=== PATIENT | male | born 1970 | race Caucasian/White ===

== ENCOUNTER 2018-12-06 14:59 | Emergency (ER) | payer OTHER ==
--- OUTSIDE RECORDS SUMMARY | 2018-12-06 15:02 | XMS REPORT | Clinical Summary ---
:1970 Author Organization [facility] Address [address] [place] [address] Care Team Providers Name Role Phone Cameron Barnes MD Primary Care Provider Allergies Active Allergy Reactions Severity Noted Date Comments Hydrocodone GI Intolerance Medium 07/10/2018 Hydromorphone High 11/26/2018 Makes head fell like balloon Medications Medication Sig Dispensed Refills Start Date End Date Status metFORMIN (GLUCOPHAGE) Take 500 mg by 0 Active 500 mg tablet mouth 2 (two) times a day with meals. carisoprodol (SOMA) Take 350 mg by 0 Active 350 MG tablet mouth 4 (four) times a day as needed for muscle spasms. traMADol (ULTRAM) 50 Take 50 mg by 0 Active mg tablet mouth every 6 (six) hours as needed for moderate pain. Lactobac Take by mouth. 0 Active no.41/Bifidobact no.7 (PROBIOTIC-10 ORAL) Active Problems Problem Noted Date Cervical radiculopathy 12/03/2018 Cervical radiculopathy at C7 10/03/2018 Cervical radiculopathy at C6 10/03/2018 vinyl dipper 10/03/2018 Carpal tunnel syndrome, right 07/11/2018 Numbness and tingling in right hand 07/11/2018 Fixation hardware in spine 07/11/2018 Encounters Date Type Specialty Care Team Description 12/06/2018 Telephone Neurosurgery Mily Pozo LVN 12/03/2018 Surgery General Surgery Adam Sheldon MD DISCECTOMY AND FUSION, C5-7, RIGHT ILIAC CREST BONE MARROW ASPIRATION 12/03/2018 Anesthesia Event General Surgery Ena Cueva NP 12/03/2018 - Hospital Encounter General Internal Adam Sheldon Cervical 12/04/2018 Medicine MD Bernie radiculopathy 11/26/2018 Pre-Admit Testing Pre-Admission Adam Sheldon Preoperative testing Appointment Testing MD Bernie (Primary Dx) 10/24/2018 Hospital Encounter Adam An MD 10/24/2018 Office Visit Neurosurgery Adam Sheldon Cervical radiculopathy at C7 (Primary Dx); MD Bernie Cervical radiculopathy at C6; Numbness and tingling in right hand; Carpal tunnel syndrome, right 10/24/2018 Hospital Encounter Adam An MD radiculopathy 10/24/2018 Hospital Encounter Adam An MD radiculopathy 10/03/2018 Office Visit Neurosurgery Adam Sheldon Cervical radiculopathy at C7 (Primary Dx); MD Bernie Numbness and tingling in right hand; Carpal tunnel syndrome, right; Fixation hardware in spine; Cervical radiculopathy at C6; vinyl dipper 10/03/2018 Orders Only Adam Reeves MD radiculopathy (Primary Dx) 07/15/2018 Orders Only Adam Reeves Chronic left-sided headaches (Primary Dx); MD Bernie Carpal tunnel syndrome of right wrist 07/11/2018 Hospital Encounter Adam An MD 07/11/2018 Office Visit Neurosurgery Adam Sheldon Numbness and tingling in right hand (Primary Dx); MD Bernie Carpal tunnel syndrome, right; Fixation hardware in spine 07/11/2018 Hospital Encounter Adam An MD radiculopathy 07/11/2018 Hospital Encounter Adam An MD radiculopathy 07/10/2018 Abstract Neurosurgery Mily Pozo LVN 06/18/2018 Orders Only Adam Reeves MD radiculopathy (Primary Dx) after 12/05/2017 Family History Medical History Relation Name Comments Cancer Father Heart disease Father Cancer Mother Hypertension Mother Thyroid disease Mother Relation Name Status Comments Father Mother Social History Tobacco Use Types Packs/Day Years Used Date Former Smoker 5 Quit: 1992 Smokeless Tobacco: Former User Snuff Quit: 10/14/2018 Alcohol Use Drinks/Week oz/Week Comments No once a month socially Alcohol Habits Answer Date Recorded How often do you have a drink containing alcohol? Never 11/26/2018 How many drinks containing alcohol do you have on a typical Not asked day when you are drinking? How often do you have six or more drinks on one occasion? Not asked Sex Assigned at Date Recorded Male 11/27/2018 2:55 PM CDT Job Start Date Occupation Industry Not on file Not on file Not on file Travel History Travel Start Travel End No recent travel history available. Last Filed Vital Signs Vital Sign Reading Time Taken Blood Pressure 136/83 12/04/2018 8:47 AM CDT Pulse 75 12/04/2018 7:29 AM CDT Temperature 36.9 C (98.5 F) 12/04/2018 7:29 AM CDT Respiratory Rate 18 12/04/2018 7:29 AM CDT Oxygen Saturation 95% 12/04/2018 7:29 AM CDT Inhaled Oxygen Concentration - - Weight 109 kg (239 lb 3.2 oz) 12/03/2018 5:29 AM CDT Height 185.4 cm (6' 1") 12/03/2018 5:29 AM CDT Body Mass Index 31.56 12/03/2018 5:29 AM CDT Plan of Treatment Health Maintenance Due Date Last Done Comments COLON CANCER SCREENING 2018 SHINGLES VACCINES (#1) 2018 INFLUENZA VACCINE 04/10/2018 Implants Implanted Type Area Piping Designer Device Shelf Model / Identifier Expiration Serial / Date Lot Rafita Eller Sterile Strips (1) - [id number] - [id number] IMPLANT N/A: NUVASIVE SPINE 05/20/2021 [id number] / Implanted: Qty: 1 on 12/03/2018 by Adam Sheldon MD DEVICES N/A FG- 1609 / [id number] Archon Plate, 40mm 2-Level - [id number] IMPLANT N/A: NUVASIVE SPINE [id number] / Implanted: 12/03/2018 (Quantity not on file) DEVICES N/A / Archon Screw, 4.0x11mm Sd Thais - [id number] IMPLANT N/A: NUVASIVE SPINE [id number] / Implanted: 12/03/2018 (Quantity not on file) DEVICES N/A / Spacer Spinal Cntord Med 5mm - [id number] Spinal N/A: NUVASIVE [id number] / Implanted: 12/03/2018 (Quantity not on file) Implants N/A / Spacer Spinal Cntord Sm [id number] - [id number] Spinal N/A: NUVASIVE [id number] / Implanted: 12/03/2018 (Quantity not on file) Implants N/A / Screw Distrctn 14mm Strl - [id number] Surgical N/A: ARMAMENTARIUM [id number] / Implanted: 12/03/2018 (Quantity not on file) Implants; N/A INC / Expanders; Extenders; Surgical Wires Procedures Procedure Name Priority Date/Time Associated Comments Diagnosis POC GLUCOSE Routine 12/03/2018 10:20 Results for this AM CDT procedure are in the results section. XR CERVICAL SPINE 1 Routine 12/03/2018 9:54 Results for this VW AM CDT procedure are in the results section. [place] AN ELECTIVE Routine 12/03/2018 8:33 ENDOTRACHEAL AIRWAY AM CDT Procedure Note - Patrick Slade MD - 12/03/2018 8:33 AM CDT Airway Date/Time: 12/03/2018 7:34 AM Performed by: Patrick Slade MD Authorized by: Patrick Slade MD Location: OR Urgency: Elective Difficult Airway: No Anesthesiologist: Patrick Slade MD Preoxygenated with 100% O2: Yes C-spine Precautions Maintained Throughout: Yes Mask Ventilation: Easy mask Final Airway Type: Endotracheal airway Final Endotracheal Airway: ETT Cuffed: Yes Technique Used: Video laryngoscopy Devices/Methods Used in Placement: Intubating stylet Insertion Site: Oral Laryngoscope Blade/Videolaryngoscope Blade Size: 4 ETT Size (mm): 8.0 Cuff at minimum occlusion pressure: Yes Measured from: Lips ETT to Lips (cm): 24 Placement Verified by: CO2 detection and equal breath sounds Laryngoscopic view: Grade I - full view of glottis Rapid Sequence Induction (RSI): No Modified RSI: No Number of Attempts at Approach: 1 Elective glidescope use 2/2 limited cervical range of motion and RUE radiculopathy ARTERIAL LINE Routine 12/03/2018 8:31 AM CDT Procedure Note - Patrick Slade MD - 12/03/2018 8:31 AM CDT Arterial line Performed by: Patrick Slade MD Authorized by: Patrick Slade MD Patient Location: Pre-op Start Time: 12/03/2018 7:36 AM End Time: 12/03/2018 7:39 AM Staff: Anesthesiologist: Patrick Slade MD Pre-procedure: patient identified, IV checked, site and side verified, risks and benefits discussed, procedure verified, surgical consent complete, patient position confirmed, monitors and equipment checked and pre-op evaluation complete MSBT: antiseptic used and hand hygiene performed TIme Out Performed: 12/03/2018 7:29 AM Indications: Indications: hemodynamic monitoring Anesthesia: Anesthesia: General Procedure Details: Arterial Line placement: Placed post induction Line placement site: Radial Line placement side: Right Arterial line gauge: 20 G Number of attempts: 1 Post-procedure: Post-procedure: Line sutured and sterile dressing applied Post procedure circulation, sensation, movement: Normal Patient tolerance: Patient tolerated the procedure well with no immediate complications XR CERVICAL SPINE Routine 12/03/2018 8:30 AM Results for this 1 VW CDT procedure are in the results section. XR CERVICAL SPINE Routine 12/03/2018 8:15 AM Results for this 1 VW CDT procedure are in the results section. DISCECTOMY, 12/03/2018 7:30 AM Cervical radiculopathy CERVICAL, WITH CDT FUSION, ANTERIOR APPROACH Case Notes POSSIBLE EXTENDED STAY, CARITO PUCKETT ORDER OF CASES 12/02/18 @ 1005 MED Special Needs EST 2HRS, POSSIBLE EXTENDED STAY, SUPINE POSITION, NUVASIVE INSTRUMENTATION, MICROSCOPE POC GLUCOSE Routine 12/03/2018 6:15 Results for this AM CDT procedure are in the results section. HEMOGLOBIN A1C Routine 11/26/2018 4:05 Preoperative testing Results for this PM CDT procedure are in the results section. ESTIMATED GFR Routine 11/26/2018 3:56 Results for this PM CDT procedure are in the results section. COMPREHENSIVE Routine 11/26/2018 3:56 Preoperative testing Results for this METABOLIC PANEL PM CDT procedure are in the results section. CBC HEMOGRAM Routine 11/26/2018 3:56 Preoperative testing Results for this PM CDT procedure are in the results section. CT POST MYELOGRAM Routine 10/24/2018 12:24 Cervical Results for this CERVICAL PM CATTLE DEALER radiculopathy procedure are in the results section. IR MYELOGRAM CERV Routine 10/24/2018 11:10 Cervical Results for this INCL INJ W S&I AM [employer]ATTLE DEALER radiculopathy procedure are in the results section. POC GLUCOSE Routine 10/24/2018 9:19 Results for this AM [employer] DEALER procedure are in the results section. MRI HEAD EXTERNAL Routine 08/06/2018 9:04 Results for this STUDY AM [employer]ATTLE DEALER procedure are in the results section. XR CERVICAL SPINE Routine 07/11/2018 2:33 Cervical Results for this COMPLETE W FLEX EXT PM CDT radiculopathy procedure are in the results section. XR SPINE SCOLIOSIS Routine 07/11/2018 2:33 Cervical Results for this 2-3 VIEWS PM CDT radiculopathy procedure are in the results section. MRI SPINE EXTERNAL Routine 06/11/2018 2:01 Results for this STUDY PM CDT procedure are in the results section. after 12/05/2017 Results POC glucose (12/03/2018 10:20 AM CDT)Only the most recent of3 resultswithin the time period is included. POC glucose 130 (H) 65 - 99 mg/dL [facility] Comment: No Action Needed [facility] Notified RN Meter ID: [id number] Private Household Worker: Aileen Saba Performing Organization Address City/[facility] Phone Number [facility] DEPARTMENT OF PATHOLOGY AND [address] [place] [address] GENOMIC MEDICINE [address] [address] XR Cervical Spine 1 Vw (12/03/2018 9:54 AM CDT)Only the most recent of3 resultswithin the time period is included. Narrative Performed At EXAMINATION: XR CERVICAL SPINE 1 VW [facility] CLINICAL HISTORY: Intraoperative COMPARISON:None IMPRESSION: Single lateral intraoperative radiograph of the cervical spine was obtained.C7 and below are obscured by patients shoulders. Postsurgical changes of C5-C7 ACDF. Oral route tube. Postsurgical prevertebral soft tissue swelling. [id number] Procedure Note Interface, Radiology Results Incoming - 12/03/2018 9:59 AM CDT EXAMINATION: XR CERVICAL SPINE 1 VW CLINICAL HISTORY: Intraoperative COMPARISON: None IMPRESSION: Single lateral intraoperative radiograph of the cervical spine was obtained. C7 and below are obscured by patients shoulders. Postsurgical changes of C5-C7 ACDF. Oral route tube. Postsurgical prevertebral soft tissue swelling. [id number] Performing Organization Address [facility]/Zipcode Phone Number [facility] [address] [place] [address] Hemoglobin A1c (11/26/2018 4:05 PM CDT) Hemoglobin A1C 6.6 (H) 4.0 - 5.6 % [facility] Comment: HbA1c cutoffs for diagnosing diabetes: 4.0% - 5.6%=normal 5.7% - 6.4%=increased risk for diabetes (prediabetes) >=6.5%=diabetes Goals for glycemic control (ADA 2016) < 7.0%Target for non adults with diabetes. More or less stringent targets may be appropriate for individual patients. <7.5% Target for Children and adolescents with type 1 diabetes. Specimen Blood Performing Organization Address [facility] Phone Number [facility] DEPARTMENT OF PATHOLOGY AND [address] [place] [phone] Estimated GFR (11/26/2018 3:56 PM CDT) Estimated GFR >=90 mL/min/1.73 m2 [facility] Comment: HOSPITAL CatergoryUnitsInterpretation G1 >=90 Normal or high G2 60-89Mildly decreased P5x56-45Qhrlya to moderately decreased C0b95-62Eqonemdybj to severely decreased G4 15-29Severely decreased G5 <15Kidney failure The eGFR was calculated using the Chronic Kidney Disease Epidemiology Collaboration (CKD-EPI) equation. Interpretation is based on recommendations of the National Kidney Foundation-Kidney Disease Outcomes Quality Initiative (NKF-KDOQI) published in 2014. Specimen Plasma specimen Performing Organization Address City/[facility]/Zipcode Phone Number [facility] DEPARTMENT OF PATHOLOGY AND [address] [place] [id number] [place] [phone] CBC hemogram (11/26/2018 3:56 PM CDT) WBC 7.93 4.50 - 11.00 k/uL [facility] RBC 5.08 4.40 - 6.00 m/uL [facility] HGB 14.7 14.0 - 18.0 g/dL [facility] HCT 45.3 41.0 - 51.0 % [facility] MCV 89.2 82.0 - 100.0 fL [facility] MCH 28.9 27.0 - 34.0 pg [facility] MCHC 32.5 31.0 - 37.0 g/dL [facility] RDW - SD 40.8 37.0 - 55.0 fL [facility] MPV 11.9 8.8 - 13.2 fL [facility] Platelet count 283 150 - 400 k/uL [facility] Nucleated RBC 0.00 /100 WBC [facility] Specimen Blood Performing Organization Address City/State/Zipcode Phone Number [facility] DEPARTMENT OF PATHOLOGY AND [address] [place] [address] GENOMIC MEDICINE [facility] [address] [place] [address] Comprehensive metabolic panel (11/26/2018 3:56 PM CDT) Sodium 143 135 - 148 mEq/L [facility] Potassium 4.1 3.5 - 5.0 mEq/L [facility] Chloride 103 98 - 112 mEq/L [facility] CO2 28 24 - 31 mEq/L [facility] Anion gap 12@ANIO 7 - 15 mEq/L [facility] BUN 13 6 - 20 mg/dL [facility] Creatinine 0.87 0.70 - 1.20 mg/dL [facility] Glucose 129 (H) 65 - 99 mg/dL [facility] Calcium 9.1 8.3 - 10.2 mg/dL [facility] Protein 7.2 6.3 - 8.3 g/dL [facility] Comment: HOSPITAL 4.6-7.0 g/dL 1 week 4.4-7.6 g/dL 7 months-1year5.1-7.3 g/dL 1-2 years5.6-7.5 g/dL >3 years6.0-8.0 g/dL 18-150 6.3-8.3 g/dL Albumin 3.8 3.5 - 5.0 g/dL [facility] A/G ratio 1.1 0.7 - 3.8 [facility] Alkaline phosphatase 72 40 - 129 U/L [facility] AST 19 10 - 50 U/L [facility] ALT 26 5 - 50 U/L [facility] Total bilirubin 0.3 0.0 - 1.2 mg/dL [facility] Specimen Plasma specimen Performing Organization Address City/State/Zipcode Phone Number [facility] DEPARTMENT OF PATHOLOGY AND [address] [place] [address] GENOMIC MEDICINE [facility] [address] [place] [address] CT Post Myelogram Cervical (10/24/2018 12:24 PM CATTLE DEALER) Narrative Performed At EXAMINATION:CT POST MYELOGRAM CERVICAL [facility] CLINICAL HISTORY:M54.12 Radiculopathycervical region, radiculopathy COMPARISON: External MRI of the cervical spine dated 06/11/2018 FINDINGS: Noncontrast CT of the cervical spine is performed per post myogram protocol. The thecal sac is opacified with contrast. CT imaging was performed with iterative reconstruction techniques and/or automated exposure control to reduce radiation dose. There are straightening normal cervical lordosis. The cervical cord is normal in volume. C2-3: Mild disc bulge. Mild canal narrowing with slight flattening of ventral cord contour. C3-4: Mild disc degenerative changes. Prominent left uncal hypertrophy. Moderate left nerve root sleeve defect. Severe left foraminal stenosis. Mild right uncal hypertrophy and mild right foraminal narrowing. Mild canal narrowing with slight flattening of the left ventral cord contour. C4-5: Minimal disc degenerative changes. C5-6: Mild disc degenerative changes. Minimal disc bulge. Moderate right and mild left uncal hypertrophy. Moderate to severe right nerve root sleeve defect and spondylotic foraminal stenosis. Mild left nerve sleeve defect and mild to moderate left foraminal stenosis.. Mild canal narrowing. C6-7: Moderate moderate disc degenerative changes. Minimal dorsal endplate spurring. Mild disc bulge. Mild bilateral uncal hypertrophy. Mild bilateral foraminal narrowing. Mild canal stenosis. C7-T1: No spondylosis. The paraspinous soft tissues are unremarkable. No incidental thyroid lesion is seen. IMPRESSION: Moderate cervical spondylosis. Multilevel mild canal narrowing. Moderate to severe right C5-6 spondylotic foraminal stenosis. Severe left C3-4 foraminal stenosis. [facility]-[id number] Procedure Note Hm Interface, Radiology Results Incoming - 10/24/2018 12:47 PM CATTLE DEALER EXAMINATION: CT POST MYELOGRAM CERVICAL CLINICAL HISTORY: M54.12 Radiculopathy cervical region, radiculopathy COMPARISON: External MRI of the cervical spine dated 06/11/2018 FINDINGS: Noncontrast CT of the cervical spine is performed per post myogram protocol. The thecal sac is opacified with contrast. CT imaging was performed with iterative reconstruction techniques and/or automated exposure control to reduce radiation dose. There are straightening normal cervical lordosis. The cervical cord is normal in volume. C2-3: Mild disc bulge. Mild canal narrowing with slight flattening of ventral cord contour. C3-4: Mild disc degenerative changes. Prominent left uncal hypertrophy. Moderate left nerve root sleeve defect. Severe left foraminal stenosis. Mild right uncal hypertrophy and mild right foraminal narrowing. Mild canal narrowing with slight flattening of the left ventral cord contour. C4-5: Minimal disc degenerative changes. C5-6: Mild disc degenerative changes. Minimal disc bulge. Moderate right and mild left uncal hypertrophy. Moderate to severe right nerve root sleeve defect and spondylotic foraminal stenosis. Mild left nerve sleeve defect and mild to moderate left foraminal stenosis.. Mild canal narrowing. C6-7: Moderate moderate disc degenerative changes. Minimal dorsal endplate spurring. Mild disc bulge. Mild bilateral uncal hypertrophy. Mild bilateral foraminal narrowing. Mild canal stenosis. C7-T1: No spondylosis. The paraspinous soft tissues are unremarkable. No incidental thyroid lesion is seen. IMPRESSION: Moderate cervical spondylosis. Multilevel mild canal narrowing. Moderate to severe right C5-6 spondylotic foraminal stenosis. Severe left C3-4 foraminal stenosis. [facility]-[id number] Performing Organization Address City/State/Zipcode Phone Number [facility] [address] [place] [address] IR Myelogram Cerv Incl Inj W S&I (10/24/2018 11:10 AM CATTLE DEALER) Narrative Performed At EXAMINATION:IR MYELOGRAM CERV INCL INJ W S&I [facility] CLINICAL HISTORY:M54.12 Radiculopathycervical region, radiculopathy COMPARISON: External MRI cervical spine dated 06/11/2018 TECHNIQUE: Informed consent was obtained prior to the procedure. All questions were answered. The patient demonstrated understanding. The back was prepped and draped in usual sterile fashion. Under intermittent fluoroscopic guidance and following local anesthetic, a 27-gauge spinal needle was introduced into the thecal sac via an L2-3 interlaminar approach. Spontaneous CSF return was noted. A total of 10 mL Omnipaque 300 were instilled intrathecally. Routine myelographic images of the cervical spine were obtained. There were no immediate untoward effects. Total fluoroscopy time was 0.1 minutes. 7 radiographs were acquired. IMPRESSION: Mild cervical lordosis in the extended position. Mild disc degenerative changes are noted at C3-4, C5-6, and C6-7. Mild left C4 neural root sleeve defect . Moderate bilateral C6 nerve root sleeve defects, most pronounced on the right. Mild bilateral C7 nerve root sleeve defects, most pronounced on the right. Minimal right C8 nerve root sleeve defect. Post myelogram CT to follow. [facility]-[id number] Procedure Note Hm Interface, Radiology Results Incoming - 10/24/2018 1:12 PM [employer]ATTLE DEALER EXAMINATION: IR MYELOGRAM CERV INCL INJ W S&I CLINICAL HISTORY: M54.12 Radiculopathy cervical region, radiculopathy COMPARISON: External MRI cervical spine dated 06/11/2018 TECHNIQUE: Informed consent was obtained prior to the procedure. All questions were answered. The patient demonstrated understanding. The back was prepped and draped in usual sterile fashion. Under intermittent fluoroscopic guidance and following local anesthetic, a 27- gauge spinal needle was introduced into the thecal sac via an L2-3 interlaminar approach. Spontaneous CSF return was noted. A total of 10 mL Omnipaque 300 were instilled intrathecally. Routine myelographic images of the cervical spine were obtained. There were no immediate untoward effects. Total fluoroscopy time was 0.1 minutes. 7 radiographs were acquired. IMPRESSION: Mild cervical lordosis in the extended position. Mild disc degenerative changes are noted at C3-4, C5-6, and C6-7. Mild left C4 neural root sleeve defect . Moderate bilateral C6 nerve root sleeve defects, most pronounced on the right. Mild bilateral C7 nerve root sleeve defects, most pronounced on the right. Minimal right C8 nerve root sleeve defect. Post myelogram CT to follow. [facility]-[id number] Performing Organization Address City/State/Zipcode Phone Number [facility] [address] [place] [address] MRI Head External Study (08/06/2018 9:04 AM CATTLE DEALER) Narrative Performed At This exam was not acquired at a [facility] facility and has not been [facility] interpreted by a [facility] Provider.The exam was imported into our imaging system for comparisons purposes. Performing Organization Address [facility]/Zipcode Phone Number [facility] [address] [place] [address] XR Cervical Spine Complete w flex/ext (07/11/2018 2:33 PM CDT) Narrative Performed At EXAMINATION:XR CERVICAL SPINE COMPLETE W FLEX EXT [facility] CLINICAL HISTORY:M54.12 Radiculopathycervical region, radiculopathy Technique: AP and lateral like she and extension oblique and open-mouth views of the cervical spine were obtained. Comparison: July 10, 2011. IMPRESSION: On the lateral view, cervical spine can be visualized to the level of C7. The atlantoaxial interval is within normal limits. No acute fracture of the cervical spine is identified. No abnormal prevertebral soft tissue swelling is identified. There is straightening of the cervical spine. There is disc degeneration most notable at C3-C4 and C6-C7. On flexion view there is subtle anterolisthesis of C4 on C5 and C2 on C3. There is suggestion of left the C3-C4 neural foraminal narrowing. [facility] [place][id number] Procedure Note Interface, Radiology Results Incoming - 07/11/2018 4:21 PM CDT EXAMINATION: XR CERVICAL SPINE COMPLETE W FLEX EXT CLINICAL HISTORY: M54.12 Radiculopathy cervical region, radiculopathy Technique: AP and lateral like she and extension oblique and open-mouth views of the cervical spine were obtained. Comparison: July 10, 2011. IMPRESSION: On the lateral view, cervical spine can be visualized to the level of C7. The atlantoaxial interval is within normal limits. No acute fracture of the cervical spine is identified. No abnormal prevertebral soft tissue swelling is identified. There is straightening of the cervical spine. There is disc degeneration most notable at C3-C4 and C6-C7. On flexion view there is subtle anterolisthesis of C4 on C5 and C2 on C3. There is suggestion of left the C3-C4 neural foraminal narrowing. [facility] [id number] Performing Organization Address [facility]/Zipcode Phone Number [facility] [place] [address] XR Spine Scoliosos 2-3 Views (07/11/2018 2:33 PM CDT) Narrative Performed At EXAMINATION: XR SPINE SCOLIOSIS 2-3 VIEWS [facility] CLINICAL HISTORY: M54.12 Radiculopathycervical region, radiculopathy COMPARISON:None IMPRESSION: 12 rib-bearing thoracic vertebrae and 5 lumbar vertebrae. Right convex mid thoracic curvature with Chapman angle measuring 16 degrees from the superior endplate of T5 to the inferior endplate of T7. Left convex thoracolumbar curvature with Chapman angle measuring 19 degrees from the superior endplate of T8 to the inferior endplate of L3. A coronal sarah line drawn inferiorly from the mid C7 vertebral body terminates at the mid S1 level. A sagittal sarah line drawn inferiorly from the mid C7 vertebral body terminates approximately 2 cm anterior to the posterior aspect of the superior endplate of S1. Posterior spinal fusion L4-L5 bilateral rods, screws, and interbody graft. Cholecystectomy clips. [id number] Procedure Note Interface, Radiology Results Incoming - 07/11/2018 4:21 PM CDT EXAMINATION: XR SPINE SCOLIOSIS 2-3 VIEWS CLINICAL HISTORY: M54.12 Radiculopathy cervical region, radiculopathy COMPARISON: None IMPRESSION: 12 rib-bearing thoracic vertebrae and 5 lumbar vertebrae. Right convex mid thoracic curvature with Chapman angle measuring 16 degrees from the superior endplate of T5 to the inferior endplate of T7. Left convex thoracolumbar curvature with Chapman angle measuring 19 degrees from the superior endplate of T8 to the inferior endplate of L3. A coronal sarah line drawn inferiorly from the mid C7 vertebral body terminates at the mid S1 level. A sagittal sarah line drawn inferiorly from the mid C7 vertebral body terminates approximately 2 cm anterior to the posterior aspect of the superior endplate of S1. Posterior spinal fusion L4-L5 bilateral rods, screws, and interbody graft. Cholecystectomy clips. [id number] Performing Organization Address City/[facility]/Zipcode Phone Number Fang[facility] [address] [place] [address] MRI Spine External Study (06/11/2018 2:01 PM CDT) Narrative Performed At This exam was not acquired at a [facility]oroastrian facility and has not been [facility] interpreted by a Zoroastrian Provider.The exam was imported into our imaging system for comparisons purposes. Performing Organization Address City/[facility]/Zipcode Phone Number [facility] [address] [place] [address] after 12/05/2017 Insurance Payer Benefit Plan / Group Subscriber ID Type Phone Address [employer] OPEN [employer]ESS/NETWORK xxxxxxxxxxx HMO (Home) [address] [place] [phone] Advance Directives Patient has advance care planning documents on file. For more information, please contact:Chao Eisenberg[address] [place] [address]
[2018-12-06 16:10] LABS: Absolute Lymphocytes (CBC) 2.5 K/uL (0.7-4.9); Absolute Monocytes 0.8 K/uL (0.1-1.3); Absolute Neutrophil 8.1 K/uL (1.8-8.0); Basophils % 0.4 % (0-1.3); Eosinophils % 1.3 % (0-4.4); Hematocrit 47.2 % (39.6-49.0); Lymphocytes % 21.3 % (15.3-44.8); MPV 8.9 fL (7.6-11.3); Monocytes % 6.9 % (3.3-12.3); RBC Red Blood Cell Count 5.48 M/uL (4.33-5.43)
[2018-12-06 16:12] LABS: Protime INR 1.13
[2018-12-06 16:36] LABS: ALT/SGPT 28 U/L (12-78); AST/SGOT 18 U/L (15-37); Albumin 3.8 g/dL (3.4-5.0); Alkaline Phosphatase 95 U/L (45-117); BUN Blood Urea Nitrogen 13 mg/dL (7-18); Bicarbonate 28 mmol/L (21-32); Bilirubin Direct 0.1 mg/dL (0-0.2); Bilirubin Total 0.6 mg/dL (0.2-1.0); Glucose Level 178 mg/dL (74-106); Magnesium 1.9 mg/dL (1.8-2.4); NT PRO-BNP 79 pg/mL (<125); Potassium 3.9 mmol/L (3.5-5.1); Protein, Total 7.9 g/dL (6.4-8.2); Sodium Level 138 mmol/L (136-145); Troponin (Emerg Dept Use Only) < 0.02 ng/mL (0.0-0.045)
--- NOTE | 2018-12-06 17:09 | RAD REPORT ---
EXAM DESCRIPTION: CT - Chest For Pe Angio - 12/06/2018 4:56 pm CLINICAL HISTORY: Chest pain, shortness of breath COMPARISON: None. TECHNIQUE: Dynamically enhanced 3 mm thick images of the chest were obtained during administration o f approximately 150mL Isovue 370 IV contrast. Coronal and oblique MIP reconstruction images were gene rated and reviewed. Exam utilizes a protocol to evaluate the pulmonary arterial tree. All CT scans are performed using dose optimization technique as appropriate and may include automated exposure control or mA/KV adjustment according to patient size. FINDINGS: No pulmonary emboli are identified. Motion somewhat limits far peripheral branch assessmen t. No abnormality suspected. The aorta as imaged shows no acute or suspicious finding. No pericardial thickening or effusion. No infiltrate or mass in the lung parenchyma. No pleural effusion or pleural thickening. No mediastinal or hilar suspicious masses. No chest wall masses or abnormal axillary lymphadenopathy. IMPRESSION: No pulmonary emboli identified. No other significant or suspicious findings.
--- NOTE | 2018-12-06 17:15 | EDPHYS ---
Physician Documentation [facility] Name: Raymundo Beal Jr Age: 48 yrs Sex: Male : 1970 Arrival Date: 12/06/2018 Time: 15:05 Bed 16 Private MD: Cameron Barnes ED Physician Sandeep Curry HPI: 12/06 15:42 This 48 yrs old Male presents to ER via Ambulatory with complaints of jr8 Irregular Pulse. 15:42 This 48 yrs old Male presents to ER via Ambulatory with complaints of jr8 Irregular Pulse/Chest pain. 15:42 Onset: The symptoms/episode began/occurred acutely, 2 day(s) ago. Duration: The patient jr8 or guardian reports a single episode, that is still ongoing. Modifying factors: The symptoms are aggravated by nothing. The symptoms are alleviated by nothing. Associated signs and symptoms: Pertinent positives: cough, fever. Severity of symptoms: At their worst the symptoms were moderate in the emergency department the symptoms are unchanged. The patient has not experienced similar symptoms in the past. The patient has been recently seen by a physician:. Patient had cervical fusion completed on Sunday. Discharged on Sunday. Stated that That evening started with cough, low grade fever, and chest tightness that is not going away. Saw PCP and sent him to ED for evaluation . Historical: - Allergies: 15:07 Hydrocodone-Acetaminophen; sg - Home Meds: 15:07 Metformin Oral [Active]; sg - PMHx: 15:07 Diabetes - NIDDM; sg - PSHx: 15:07 Neck Fusion; Back Fusion; Cholecystectomy; Rotator Cuff Surgery; sg - Immunization history:: Adult Immunizations up to date. - Social history:: Smoking status: Patient/guardian denies using tobacco. - Ebola Screening: : Patient negative for fever greater than or equal to 101.5 degrees Fahrenheit, and additional compatible Ebola Virus Disease symptoms Patient denies exposure to infectious person Patient denies travel to an Ebola-affected area in the 21 days before illness onset No symptoms or risks identified at this time. ROS: 15:42 Eyes: Negative for injury, pain, redness, and discharge, ENT: Negative for injury, jr8 pain, and discharge, Neck: Negative for injury, pain, and swelling, Abdomen/GI: Negative for abdominal pain, nausea, vomiting, diarrhea, and constipation, Back: Negative for injury and pain, MS/Extremity: Negative for injury and deformity, Skin: Negative for injury, rash, and discoloration, Neuro: Negative for headache, weakness, numbness, tingling, and seizure. 15:42 Constitutional: Positive for fever. 15:42 Cardiovascular: Positive for chest pain, Negative for edema, orthopnea, palpitations, paroxysmal nocturnal dyspnea. 15:42 Respiratory: Positive for cough, with no reported sputum, Negative for dyspnea on exertion, shortness of breath, sputum production, wheezing. Exam: 15:42 Eyes: Pupils equal round and reactive to light, extra-ocular motions intact. Lids and jr8 lashes normal. Conjunctiva and sclera are non-icteric and not injected. Cornea within normal limits. Periorbital areas with no swelling, redness, or edema. ENT: Nares patent. No nasal discharge, no septal abnormalities noted. Tympanic membranes are normal and external auditory canals are clear. Oropharynx with no redness, swelling, or masses, exudates, or evidence of obstruction, uvula midline. Mucous membranes moist. Neck: Trachea midline, no thyromegaly or masses palpated, and no cervical lymphadenopathy. Supple, full range of motion without nuchal rigidity, or vertebral point tenderness. No Meningismus. Respiratory: Lungs have equal breath sounds bilaterally, clear to auscultation and percussion. No rales, rhonchi or wheezes noted. No increased work of breathing, no retractions or nasal flaring. Abdomen/GI: Soft, non-tender, with normal bowel sounds. No distension or tympany. No guarding or rebound. No evidence of tenderness throughout. Back: No spinal tenderness. No costovertebral tenderness. Full range of motion. Skin: Warm, dry with normal turgor. Normal color with no rashes, no lesions, and no evidence of cellulitis. MS/ Extremity: Pulses equal, no cyanosis. Neurovascular intact. Full, normal range of motion. Neuro: Awake and alert, GCS 15, oriented to person, place, time, and situation. Cranial nerves II-XII grossly intact. Motor strength 5/5 in all extremities. Sensory grossly intact. Cerebellar exam normal. Normal gait. 15:42 Cardiovascular: Rate: tachycardic, Rhythm: regular, Pulses: Pulses are 2+ in right radial artery and left radial artery. Heart sounds: normal, normal S1and S2, no S3 or S4, no murmur, no rub, no gallop, Edema: is not appreciated, JVD: is not appreciated. 15:42 ECG was reviewed by the Attending Physician. Vital Signs: 15:10 BP 124 / 72; Pulse 127 MON; Resp 18 S; Temp 98.2; Pulse Ox 100% on R/A; Pain 0/10; sg 16:35 BP 117 / 85; Pulse 108; Resp 19; Temp 99.0(O); Pulse Ox 99% on R/A; Pain 4/10; em 17:29 BP 113 / 85; Pulse 103; Resp 18; Pulse Ox 95% on R/A; em MDM: 15:08 Patient medically screened. [facility] 17:13 Data reviewed: vital signs, nurses notes, old medical records, lab test result(s), EKG, jr8 radiologic studies, CT scan. Data interpreted: Pulse oximetry: on room air is 99 %. Interpretation: normal. Counseling: I had a detailed discussion with the patient and/or guardian regarding: the historical points, exam findings, and any diagnostic results supporting the discharge/admit diagnosis, lab results, radiology results, the need for outpatient follow up, a family practitioner, to return to the emergency department if symptoms worsen or persist or if there are any questions or concerns that arise at home. ED course: Patient refused to have influenza swab completed. No acute infectious finding appreciated. Labs without acute finding. CT and plain film negative. No abnormal neck pain, odynophagia, dysphagia, fevers, or nuchal rigidity. Return precautions given to patient . 12/06 15:36 Order name: Basic Metabolic Panel; Complete Time: 16:38 12/06 15:36 Order name: CBC with Diff; Complete Time: 16:32 12/06 15:36 Order name: LFT's; Complete Time: 16:38 12/06 15:36 Order name: Magnesium; Complete Time: 16:38 12/06 15:36 Order name: NT PRO-BNP; Complete Time: 16:38 12/06 15:36 Order name: PT-INR; Complete Time: 16:32 12/06 15:36 Order name: Troponin (emerg Dept Use Only); Complete Time: 16:38 12/06 15:36 Order name: EKG; Complete Time: 15:37 12/06 15:36 Order name: Cardiac monitoring; Complete Time: 16:12/06 15:36 Order name: EKG - Nurse/Tech; Complete Time: 16:12/06 15:36 Order name: IV Saline Lock; Complete Time: 16:12/06 15:54 Order name: CT Chest For PE Angio; Complete Time: 17:13 12/06 15:36 Order name: Labs collected and sent; Complete Time: 16:12/06 15:36 Order name: O2 Per Protocol; Complete Time: 16:12/06 15:36 Order name: O2 Sat Monitoring; Complete Time: 16: EC:42 Rate is 102 beats/min. Rhythm is regular, Sinus tachycardia. QRS [place] is Normal. MI jr8 interval is normal at 148 msec. QRS interval is normal at 80 msec. QT interval is normal at 424 msec. No Q waves. T waves are Normal. No ST changes noted. Clinical impression: Sinus tachycardia. Interpreted by me. Reviewed by me. Administered Medications: No medications were administered Disposition: 18:00 Co-signature as Attending Physician, Sandeep Curry MD. rn Disposition: 12/06/18 17:14 Discharged to Home. Impression: Tachycardia, unspecified. - Condition is Stable. - Discharge Instructions: Sinus Tachycardia. - Medication Reconciliation Form, Thank You Letter, Antibiotic Education, Prescription Opioid Use form. - Follow up: Cameron Barnes MD; When: 2 - 3 days; Reason: Recheck today's complaints, Continuance of care, Re-evaluation by your physician. - Problem is new. - Symptoms have improved. Signatures: Dispatcher [employer] EDMS Joselito Riggins RN RN sg Laurent, Al, FILM TOUCH UP INSPECTOR FILM TOUCH UP INSPECTOR em Sandeep Curry MD MD rn Keyshawn Quick, PAT STEWART jr8 Corrections: (The following items were deleted from the chart) 15:52 15:37 Chest Single View+RAD.RAD.BRZ ordered. EDPR EDMS 16:14 15:37 Influenza Screen (A \T\ B)+BA.LAB.BRZ ordered. EDPR EDMS 17:15 17:13 ED course: Patient refused to have influenza swab completed. No acute infectious jr8 finding appreciated. Labs without acute finding. CT and plain film negative. Return precautions given to patient . jr8 17:30 17:14 12/06/2018 17:14 Discharged to Home. Impression: Tachycardia, unspecified. em Condition is Stable. Forms are Medication Reconciliation Form, Thank You Letter, Antibiotic Education, Prescription Opioid Use. Follow up: Cameron Barnes; When: 2 - 3 days; Reason: Recheck today's complaints, Continuance of care, Re-evaluation by your physician. Problem is new. Symptoms have improved. jr8
--- NOTE | 2018-12-06 17:15 | ER ---
Nurse's Notes [facility] Name: Raymundo Beal Jr Age: 48 yrs Sex: Male : 1970 Arrival Date: 12/06/2018 Time: 15:05 Bed 16 Private MD: Cameron Barnes Diagnosis: Tachycardia, unspecified Presentation: 12/06 15:07 Presenting complaint: Patient states: I was sent by for rule out PE post sg surgical of neck fusion, pt denies any pain reports mild shortness of breath. Transition of care: patient was not received from another setting of care. Onset of symptoms was December 06, 2018. Risk Assessment: Do you want to hurt yourself or someone else? Patient reports no desire to harm self or others. Initial Sepsis Screen: Does the patient meet any 2 criteria? No. Patient's initial sepsis screen is negative. Does the patient have a suspected source of infection? No. Patient's initial sepsis screen is negative. Care prior to arrival: None. 15:07 Method Of Arrival: Ambulatory sg 15:07 Acuity: UCHE 3 sg Historical: - Allergies: 15:07 Hydrocodone-Acetaminophen; sg - Home Meds: 15:07 Metformin Oral [Active]; sg - PMHx: 15:07 Diabetes - NIDDM; sg - PSHx: 15:07 Neck Fusion; Back Fusion; Cholecystectomy; Rotator Cuff Surgery; sg - Immunization history:: Adult Immunizations up to date. - Social history:: Smoking status: Patient/guardian denies using tobacco. - Ebola Screening: : Patient negative for fever greater than or equal to 101.5 degrees Fahrenheit, and additional compatible Ebola Virus Disease symptoms Patient denies exposure to infectious person Patient denies travel to an Ebola-affected area in the 21 days before illness onset No symptoms or risks identified at this time. Screenin:25 Abuse screen: Denies threats or abuse. Nutritional screening: No deficits noted. em Tuberculosis screening: No symptoms or risk factors identified. Fall Risk None identified. Assessment: 15:30 General: Appears in no apparent distress. comfortable, Behavior is calm, cooperative, em Reports low grade fever sent over to received a CT to rule out PE by Dr. Phipps. Pain: Complains of pain in chest Pain does not radiate. Quality of pain is described as pressure, Pain began 2-3 days ago. Neuro: Level of Consciousness is awake, alert, obeys commands, Oriented to person, place, time, situation, Denies dizziness. Cardiovascular: Reports shortness of breath, Denies palpitations, Heart tones S1 S2 present Capillary refill < 3 seconds Patient's skin is warm and dry. Rhythm is sinus tachycardia. Respiratory: Reports shortness of breath on exertion Airway is patent Respiratory effort is even, unlabored, Respiratory pattern is regular, symmetrical, Breath sounds are clear bilaterally. Denies cough. GI: Patient currently denies nausea, vomiting. Derm: Skin is intact, is healthy with good turgor, Skin is pink, warm \T\ dry. Musculoskeletal: C-collar in place, had a recent cervical surgery on Sunday, denies neck pain. 15:50 Reassessment: Patient appears in no apparent distress at this time. I agree with above iw assessment by Al Mancilla LVN. 16:30 Reassessment: Patient appears in no apparent distress at this time. Patient and/or em family updated on plan of care and expected duration. Pain level reassessed. Patient is alert, oriented x 3, equal unlabored respirations, skin warm/dry/pink. pending CT. 17:30 Reassessment: Patient appears in no apparent distress at this time. Patient and/or em family updated on plan of care and expected duration. Pain level reassessed. Patient is alert, oriented x 3, equal unlabored respirations, skin warm/dry/pink. Patient states feeling better. Patient states symptoms have improved. Vital Signs: 15:10 BP 124 / 72; Pulse 127 MON; Resp 18 S; Temp 98.2; Pulse Ox 100% on R/A; Pain 0/10; sg 16:35 BP 117 / 85; Pulse 108; Resp 19; Temp 99.0(O); Pulse Ox 99% on R/A; Pain 4/10; em 17:29 BP 113 / 85; Pulse 103; Resp 18; Pulse Ox 95% on R/A; em ED Course: 15:05 Patient arrived in ED. sg 15:05 Cameron Barnes MD is Private Physician. sg 15:05 Arm band placed on. sg 15:07 Keyshawn Quick [facility]. jr8 15:08 Sandeep Curry MD is Attending Physician. jr8 15:10 Triage completed. sg 15:11 Al Mancilla LVN is Primary Nurse. em 15:30 Patient has correct armband on for positive identification. Pulse ox on. NIBP on. em 15:30 Patient maintains SpO2 saturation greater than 95% on room air. em 15:49 EKG done, by pile driving technician. reviewed by Keyshawn STEWART. 3 15:55 Initial lab(s) drawn, by nc, sent to lab. Inserted saline lock: 22 gauge in left em forearm, using aseptic technique. Blood collected. 15:56 Radiology exam delayed due to lab results not completed at this time. (BUN/Creatinine). vr 16:33 Radiology exam delayed due to lab results not completed at this time. (BUN/Creatinine). vr 16:[address]. 2 16:[address] completed. Patient tolerated procedure well. Patient moved back from CT. 2 16:57 CT Chest For PE Angio In Process Unspecified. EDIA 17:14 Cameron Barnes MD is Referral Physician. 8 17:28 No provider procedures requiring assistance completed. IV discontinued, intact, em bleeding controlled, No redness/swelling at site. Pressure dressing applied. Administered Medications: No medications were administered Outcome: 17:14 Discharge ordered by MD. 8 17:28 Discharged to home ambulatory, with family. em 17:28 Condition: good 17:28 Discharge instructions given to patient, family, Instructed on discharge instructions, follow up and referral plans. Demonstrated understanding of instructions, follow-up care. 17:30 Patient left the ED. em Signatures: Dispatcher [employer] EDIA Joselito Riggins RN RN Al Mancilla LVN LVN em Sharri Gordon, RN Sayda Preston Keyshawn Quick PA PA [facility] Sayda Avilez 2 Diana Yuen 3 Corrections: (The following items were deleted from the chart) 17:29 15:30 General: Appears in no apparent distress. comfortable, Behavior is calm, em cooperative, Reports low grade fever em
== END 2018-12-06 17:30 | disposition home or self-care (01) ==
LOC: ER 14:59
DX: R00.0 Tachycardia, unspecified (principal); E11.9 Type 2 diabetes mellitus without complications; Z88.5 Allergy status to narcotic agent
CPT/HCPCS: 36415; 71275; 80048; 80076; 83735; 83880; 84484; 85025; 85610; 93005; 99285; Q9967

== ENCOUNTER 2020-03-15 11:24 | Emergency (ER) | payer OTHER ==
[2020-03-15] MEDS ORDERED: NA CHLORIDE 0.9% 1,000 ML ONE (13:31)
[2020-03-15 13:49] LABS: Absolute Lymphocytes (CBC) 1.6 K/uL (0.7-4.9); Basophils % 0.3 % (0-1.3); Hematocrit 45.5 % (39.6-49.0); Lymphocytes % 24.5 % (15.3-44.8); MPV 9.9 fL (7.6-11.3); RBC Red Blood Cell Count 5.27 M/uL (4.33-5.43)
--- NOTE | 2020-03-15 13:57 | RAD REPORT ---
EXAM DESCRIPTION: RAD - Chest Single View - 03/15/2020 1:48 pm CLINICAL HISTORY: Cough;Dyspnea Chest pain. COMPARISON: Chest Pa And Lat (2 Views) dated 12/06/2018 FINDINGS: Portable technique limits examination quality. Mild bilateral interstitial lung infiltrates are present suspicious for interstitial pneumonia. The h eart is mildly enlarged in size. No displaced fractures.Cervical hardware plate noted.
--- OUTSIDE RECORDS SUMMARY | 2020-03-15 13:58 | XMS REPORT | Clinical Summary ---
:1970 Author Organization [facility] Address [address] [place] [address] Care Team Providers Name Role Phone MD Cameron Primary Care Provider Allergies Active Allergy Reactions Severity Noted Date Comments Hydrocodone GI Intolerance Medium 07/10/2018 Hydromorphone High 11/26/2018 Makes head fel l like balloon Medications Medication Sig Dispensed Refills [...] moderate pain. Lactobac Take by mouth. 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 Never 11/26/2018 How many drinks containing alcohol do you have on a typical Not asked day when you are drinking? How often do you have six or more drinks on one occasion? No t asked Sex Assigned at Date Recorded Male 11/27/2018 2:55 PM CDT Job Start Date Occupation Industry Not on file Not on file Not on file Travel History Travel Start Travel End No recent travel history available. Last Filed Vital Signs Not on file Plan of Treatment Health Maintenance Due Date Last Done Comments COLONOSCOPY SCREENING 2018 SHINGLES VACCINES (#1) 2018 INFLUENZA VACCINE 04/10/2020 Implants Implanted Type Area Credit Reporting Clerk Device Shelf Model / Identifier Expiration Serial / Date Lot Rafita Eller Sterile Strips (1) - [id number] - [id number] IMPLANT N/A: NUVASIVE SPINE 05/20/2021 [id number] / Implanted: Qty: 1 on 12/03/2018 by Adam Sheldon MD at [facility] DEVICES N/A [id number] / [id number] Archon Plate, 40mm 2-Level - [id number] IMPLANT N/A: NUVASIVE SPINE [id number] / Implanted: 12/03/2018 at [facility] (Quantity not on file) DEVICES N/A / Archon Screw, 4.0x11mm Sd Thais - [id number] IMPLANT N/A: NUVAS DOROTHY SPINE [id number] / Implanted: 12/03/2018 at [facility] (Quantity not on file) DEVICES N/A / Spacer Spinal Cntord Med 5mm - [id number] Spinal N/A: NUVASIVE [id number] / Implanted: Qty: 1 on 12/03/2018 by Adam Sheldon MD at [facility] Implants N/A / Spacer Spinal Cntord Sm [id number] - [id number] Spinal N/A: NUVA SIVE [id number] / Implanted: Qty: 1 on 12/03/2018 by Adam Sheldon MD at [facility] Implants N/A / Screw Distrctn 14mm Strl - [id number] Surgical N/A: MINAL Maldonado [id number] / Implanted: 12/03/2018 at [facility] (Quantity not on file) Implants ; N/A INC / Expanders; Extenders; Surgical Wires Results Not on fileafter 03/15/2019 Advance Directives For more information, please contact: [phone] Type Date 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
[2020-03-15 14:07] LABS: ALT/SGPT 99 U/L (12-78); AST/SGOT 83 U/L (15-37); Albumin 3.8 g/dL (3.4-5.0); Alkaline Phosphatase 140 U/L (45-117); BUN Blood Urea Nitrogen 13 mg/dL (7-18); Bicarbonate 30 mmol/L (21-32); Bilirubin Direct 0.1 mg/dL (0-0.2); Bilirubin Total 0.4 mg/dL (0.2-1.0); Glucose Level 130 mg/dL (74-106); Magnesium 2.3 mg/dL (1.8-2.4); NT PRO-BNP 34 pg/mL (<125); Potassium 4.1 mmol/L (3.5-5.1); Sodium Level 137 mmol/L (136-145); Troponin (Emerg Dept Use Only) < 0.02 ng/mL (0.0-0.045)
[2020-03-15] MEDS ORDERED: ACETAMINOPHEN 500 MG TAB ONE (14:41)
--- NOTE | 2020-03-15 14:41 | EDPHYS ---
Physician Documentation [facility] Name: Raymundo Beal Jr Age: 49 yrs Sex: Male : 1970 Arrival Date: 03/15/2020 Time: 11:28 Bed 2 Private MD: Cameron Barnes ED Physician Duong Smith HPI: 03/15 14:35 This 49 yrs old Male presents to ER via Ambulatory with complaints of Fever, see Cough, Shortness Of Breath. 14:35 The patient reports fever, that was measured at 102 degrees Fahrenheit. Onset: The see symptoms/episode began/occurred 3 day(s) ago. Modifying factors: there are no obvious modifying factors. Associated signs and symptoms: Pertinent positives: cough. Severity of symptoms: At their worst the symptoms were moderate in the emergency department the symptoms are unchanged. The patient has not experienced similar symptoms in the past. Historical: - Allergies: 13:01 Hydrocodone-Acetaminophen; iw 13:01 PENICILLINS; iw - Home Meds: 13:01 None [Active]; iw - PMHx: 13:01 Diabetes - NIDDM; iw - PSHx: 13:01 Neck Fusion; Back Fusion; Cholecystectomy; Rotator Cuff Surgery; iw - Immunization history:: Adult Immunizations not up to date. - Social history:: Smoking status: . - Family history:: not pertinent. ROS: 14:35 Eyes: Negative for injury, pain, redness, and discharge, ENT: Negative for injury, see pain, and discharge, Neck: Negative for injury, pain, and swelling, Cardiovascular: Negative for chest pain, palpitations, and edema, Abdomen/GI: Negative for abdominal pain, nausea, vomiting, diarrhea, and constipation, Back: Negative for injury and pain, : Negative for injury, bleeding, discharge, and swelling, MS/Extremity: Negative for injury and deformity, Skin: Negative for injury, rash, and discoloration, Neuro: Negative for headache, weakness, numbness, tingling, and seizure, Psych: Negative for depression, anxiety, suicide ideation, homicidal ideation, and hallucinations, Allergy/Immunology: Negative for hives, rash, and allergies, Endocrine: Negative for neck swelling, polydipsia, polyuria, polyphagia, and marked weight changes, Hematologic/Lymphatic: Negative for swollen nodes, abnormal bleeding, and unusual bruising. 14:35 Constitutional: Positive for body aches, chills, fatigue, fever, malaise. 14:35 Respiratory: Positive for dyspnea on exertion, shortness of breath, wheezing, expiratory. Exam: 14:35 Constitutional: This is a well developed, well nourished patient who is awake, alert, see and in no acute distress. Head/Face: Normocephalic, atraumatic. Eyes: Pupils equal round and reactive to light, extra-ocular motions intact. Lids and lashes normal. Conjunctiva and sclera are non-icteric and not injected. Cornea within normal limits. Periorbital areas with no swelling, redness, or edema. ENT: Nares patent. No nasal discharge, no septal abnormalities noted. Tympanic membranes are normal and external auditory canals are clear. Oropharynx with no redness, swelling, or masses, exudates, or evidence of obstruction, uvula midline. Mucous membranes moist. Neck: Trachea midline, no thyromegaly or masses palpated, and no cervical lymphadenopathy. Supple, full range of motion without nuchal rigidity, or vertebral point tenderness. No Meningismus. Chest/axilla: Normal chest wall appearance and motion. Nontender with no deformity. No lesions are appreciated. Cardiovascular: Regular rate and rhythm with a normal S1 and S2. No gallops, murmurs, or rubs. Normal PMI, no JVD. No pulse deficits. Abdomen/GI: Soft, non-tender, with normal bowel sounds. No distension or tympany. No guarding or rebound. No evidence of tenderness throughout. Back: No spinal tenderness. No costovertebral tenderness. Full range of motion. Male : Normal genitalia with no discharge or lesions. Skin: Warm, dry with normal turgor. Normal color with no rashes, no lesions, and no evidence of cellulitis. MS/ Extremity: Pulses equal, no cyanosis. Neurovascular intact. Full, normal range of motion. Neuro: Awake and alert, GCS 15, oriented to person, place, time, and situation. Cranial nerves II-XII grossly intact. Motor strength 5/5 in all extremities. Sensory grossly intact. Cerebellar exam normal. Normal gait. Psych: Awake, alert, with orientation to person, place and time. Behavior, mood, and affect are within normal limits. 14:35 Respiratory: mild respiratory distress is noted, Respirations: labored breathing, that is mild, Breath sounds: bronchial sounds, decreased breath sounds, rhonchi, wheezing: expiratory Respiratory rate: 20 Vital Signs: 13:01 BP 126 / 84; Pulse 85; Resp 16; Temp 98.2; Pulse Ox 97% on R/A; Weight 108.86 kg; iw Height 6 ft. 1 in. (185.42 cm); 14:00 BP 125 / 82; Pulse 82; Resp 15; Pulse Ox 98% on R/A; hb 14:23 Temp 100.1(O); dh3 15:00 BP 124 / 86; Pulse 85; Resp 17; Pulse Ox 95% on R/A; hb 16:00 BP 126 / 92; Pulse 97; Resp 16; Pulse Ox 97% on R/A; hb 17:00 BP 123 / 80; Pulse 80; Resp 22; Pulse Ox 96% on 2 lpm NC; hb 13:01 Body Mass Index 31.66 (108.86 kg, 185.42 cm) iw MDM: 11:51 Patient medically screened. [facility] 14:38 Data reviewed: vital signs, nurses notes, lab test result(s), EKG, radiologic studies, see plain films. 14:40 Differential diagnosis: viral Infection, bacterial infection, URI, bronchitis, see pneumonia. Data interpreted: air sampling and monitoring: rate is 82 beats/min, rhythm is regular, Pulse oximetry: on room air is 98 %. Test interpretation: by ED physician or midlevel provider: ECG, plain radiologic studies. Counseling: I had a detailed discussion with the patient and/or guardian regarding: the historical points, exam findings, and any diagnostic results supporting the discharge/admit diagnosis, the presence of at least one elevated blood pressure reading (>120/80) during this emergency department visit, lab results, radiology results, the need for further work-up and treatment in the hospital. ED course: akilah bautistas pat admitted to hospitalist, patient aware. 03/15 13:13 Order name: Basic Metabolic Panel; Complete Time: 14:33 [facility] 03/15 13:13 Order name: CBC with Diff; Complete Time: 14:33 [facility] 03/15 13:13 Order name: LFT's; Complete Time: 14:33 [facility] 03/15 13:13 Order name: Magnesium; Complete Time: 14:33 [facility] 03/15 13:13 Order name: NT PRO-BNP; Complete Time: 14:33 [facility] 03/15 13:13 Order name: Troponin (emerg Dept Use Only); Complete Time: 14:33 [facility] 03/15 13:13 Order name: XRAY Chest (1 view); Complete Time: 14:33 [facility] 03/15 13:13 Order name: Blood Culture Adult (2) [facility] 03/15 13:13 Order name: Procalcitonin; Complete Time: 15:32 [facility] 03/15 13:13 Order name: Lactate; Complete Time: 14:33 [facility] 03/15 13:13 Order name: Influenza Screen (a \T\ B); Complete Time: 15:32 [facility] 03/15 13:13 Order name: COVID-19 [facility] 03/15 16:56 Order name: ABG [facility] 03/15 13:13 Order name: EKG; Complete Time: 13:14 [facility] 03/15 13:13 Order name: Cardiac monitoring; Complete Time: 13:44 [facility] 03/15 13:13 Order name: EKG - Nurse/Tech; Complete Time: 13:44 [facility] 03/15 13:13 Order name: IV Saline Lock; Complete Time: 13:44 [facility] 03/15 13:13 Order name: Labs collected and sent; Complete Time: 13:44 [facility] 03/15 13:13 Order name: O2 Per Protocol; Complete Time: 13:44 [facility] 03/15 13:13 Order name: O2 Sat Monitoring; Complete Time: 13:44 [facility] Administered Medications: 13:43 Drug: NS 0.9% 500 ml Route: IV; Rate: bolus; Site: left antecubital; hb 14:15 Follow up: Response: No adverse reaction; IV Status: Completed infusion; IV Intake: hb 500ml 14:33 Drug: NS 0.9% 1000 ml Route: IV; Rate: 125 ml/hr; Site: right antecubital; hb 14:38 Drug: Tylenol 650 mg Route: PO; hb 16:03 Drug: Decadron - Dexamethasone 10 mg Route: IVP; Site: left antecubital; hb 16:03 Drug: Rocephin 1 grams Route: IV; Rate: per protocol; Site: left antecubital; hb 16:03 Drug: Zithromax 500 mg Route: IVPB; Infused Over: 1 hrs; Site: left antecubital; hb 16:04 Drug: Albuterol HFA Inhaler 2 puffs Route: Inhalation; hb Disposition: 03/15/20 15:36 Discharged to Home. Impression: Fever, unspecified, Unspecified bacterial pneumonia - mild bilateral, Type 2 diabetes mellitus, SARS-associated coronavirus as the cause of diseases classified elsewhere. - Condition is Stable. - Discharge Instructions: Type 2 Diabetes Mellitus, Diagnosis, Adult, Fever, Adult, Community-Acquired Pneumonia, Adult, Community-Acquired Pneumonia, Adult, [id number], Type 2 Diabetes Mellitus, Diagnosis, Adult, [id number], Fever, Adult, [id number]. - Prescriptions for Medrol (Pedro) 4 mg Oral Tablets, Dose Pack - take 1 tablet by ORAL route as directed - follow package instructions; 1 packet. Albuterol Sulfate 90 mcg/actuation - inhale 1-2 puff by INHALATION route every 4-6 hours; 1 Inhaler. Zithromax 500 mg Oral Tablet - take 1 tablet by ORAL route once daily for 4 days; 4 tablet. - Medication Reconciliation Form, Thank You Letter, Antibiotic Education, Prescription Opioid Use form. - Follow up: Cameron Barnes MD; When: 2 - 3 days; Reason: Recheck today's complaints, Continuance of care, Re-evaluation by your physician. Follow up: Aamir Schmitt MD; When: 2 - 3 days; Reason: Recheck today's complaints, Re-evaluation by your physician. - Problem is new. - Symptoms have improved. Signatures: Dispatcher [employer] EDDuong Valle MD MD cha Williams, Irene, RN RN Katlyn Go RN RN Corrections: (The following items were deleted from the chart) 15:30 14:39 Hospitalization Ordered by Chencho Delgado DO for Inpatient Admission. Preliminary [facility] diagnosis is Fever, unspecified; Pneumonia, unspecified organism - bilateral; Dyspnea; Type 2 diabetes mellitus. Bed requested for Telemetry/MedSurg (Inpatient). Status is Inpatient Admission. Condition is Fair. Problem is new. Symptoms have improved. [facility] 18:20 15:36 03/15/2020 15:36 Discharged to Home. Impression: Fever, unspecified; Unspecified iw bacterial pneumonia - mild bilateral; Type 2 diabetes mellitus; SARS-associated coronavirus as the cause of diseases classified elsewhere. Condition is Stable. Forms are Medication Reconciliation Form, Thank You Letter, Antibiotic Education, Prescription Opioid Use. Follow up: Cameron Barnes; When: 2 - 3 days; Reason: Recheck today's complaints, Continuance of care, Re-evaluation by your physician. Follow up: Aamir Schmitt; When: 2 - 3 days; Reason: Recheck today's complaints, Re-evaluation by your physician. Problem is new. Symptoms have improved. see
--- NOTE | 2020-03-15 14:41 | ER ---
Nurse's Notes [facility] Name: Raymundo Beal Jr Age: 49 yrs Sex: Male : 1970 Arrival Date: 03/15/2020 Time: 11:28 Bed 2 Private MD: Cameron Barnes Diagnosis: Fever, unspecified;Unspecified bacterial pneumonia-mild bilateral;Type 2 diabetes mellitus;SARS-associated coronavirus as the cause of diseases classified elsewhere Presentation: 03/15 12:01 Chief complaint: Patient states: has had cough, diff breathing , chest pain with cough iw , intermittent fever X 10 days, tested positive for COVID 10 days ago, pt tested negative last Sunday. Coronavirus screen: Surgical mask placed on patient. Patient moved to private room, placed in contact and droplet isolation with eye protection until further assessment. Patient reports a cough. Patient reports shortness of breath or difficulty breathing. Patient reports a measured and/or subjective temperature greater than 100.4F. Patient denies travel on a cruise ship or to a country the [facility] currently lists as an affected area. Patient reports contact with known and/or suspected case of COVID-19. Prior COVID test collected on: 03/08/2020, DR. Mendoza's office. Ebola Screen: Patient negative for fever greater than or equal to 101.5 degrees Fahrenheit, and additional compatible Ebola Virus Disease symptoms Patient denies exposure to infectious person. Patient denies travel to an Ebola-affected area in the 21 days before illness onset. No symptoms or risks identified at this time. 12:01 Method Of Arrival: Ambulatory iw 12:01 Acuity: UCHE 3 iw 18:20 Initial Sepsis Screen: Does the patient meet any 2 criteria? No. Patient's initial iw sepsis screen is negative. Does the patient have a suspected source of infection? No. Patient's initial sepsis screen is negative. Risk Assessment: Do you want to hurt yourself or someone else? Patient reports no desire to harm self or others. Onset of symptoms. Triage Assessment: 18:20 General: Behavior is calm. iw Historical: - Allergies: 13:01 Hydrocodone-Acetaminophen; iw 13:01 PENICILLINS; iw - Home Meds: 13:01 None [Active]; iw - PMHx: 13:01 Diabetes - NIDDM; iw - PSHx: 13:01 Neck Fusion; Back Fusion; Cholecystectomy; Rotator Cuff Surgery; iw - Immunization history:: Adult Immunizations not up to date. - Social history:: Smoking status: . - Family history:: not pertinent. Screenin:30 Abuse screen: Denies threats or abuse. Denies injuries from another. Nutritional hb screening: No deficits noted. Tuberculosis screening: No symptoms or risk factors identified. Fall Risk None identified. Assessment: 12:15 General: Appears in no apparent distress. Pain: Denies pain. Neuro: Level of hb Consciousness is awake, alert, obeys commands, Oriented to person, place, time, situation. Cardiovascular: Capillary refill < 3 seconds Patient's skin is warm and dry. Respiratory: Reports shortness of breath cough that is Airway is patent Respiratory effort is even, unlabored, Respiratory pattern is regular, symmetrical. GI: No signs and/or symptoms were reported involving the gastrointestinal system. : No signs and/or symptoms were reported regarding the genitourinary system. EENT: No signs and/or symptoms were reported regarding the EENT system. Derm: Skin is pink, warm \T\ dry. Musculoskeletal: No signs and/or symptoms reported regarding the musculoskeletal system. 13:00 Reassessment: Patient appears in no apparent distress at this time. Patient and/or hb family updated on plan of care and expected duration. Pain level reassessed. Patient is alert, oriented x 3, equal unlabored respirations, skin warm/dry/pink. 13:45 Reassessment: Patient appears in no apparent distress at this time. Patient and/or hb family updated on plan of care and expected duration. Pain level reassessed. Patient is alert, oriented x 3, equal unlabored respirations, skin warm/dry/pink. 14:34 Reassessment: Pt c/o chills, oral temp 100.1. Sheet provided for pt, Dr. Luis garcia notified, Tylenol administered as ordered. 15:00 Reassessment: Pt appears in no distress, VSS, denies pain/SOB. Awaiting delivery of IV hb ABX from pharmacy at this time. 16:00 Reassessment: Discharge pending completion of IV ABX. hb 16:50 Reassessment: Pt desat 86-90% on RA while lying in bed. Dr. Smith notified. RA ABG hb ordered, RT paged. Vital Signs: 13:01 BP 126 / 84; Pulse 85; Resp 16; Temp 98.2; Pulse Ox 97% on R/A; Weight 108.86 kg; iw Height 6 ft. 1 in. (185.42 cm); 14:00 BP 125 / 82; Pulse 82; Resp 15; Pulse Ox 98% on R/A; hb 14:23 Temp 100.1(O); dh3 15:00 BP 124 / 86; Pulse 85; Resp 17; Pulse Ox 95% on R/A; hb 16:00 BP 126 / 92; Pulse 97; Resp 16; Pulse Ox 97% on R/A; hb 17:00 BP 123 / 80; Pulse 80; Resp 22; Pulse Ox 96% on 2 lpm NC; hb 13:01 Body Mass Index 31.66 (108.86 kg, 185.42 cm) iw ED Course: 11:28 Patient arrived in ED. mr 11:28 Cameron Barnes MD is Private Physician. mr 11:51 Duong Smith MD is Attending Physician. see 12:30 Patient has correct armband on for positive identification. Bed in low position. Call hb light in reach. 12:59 Triage completed. iw 13:03 Katlyn Go, RN is Primary Nurse. hb 13:04 Arm band placed on. iw 13:40 Initial lab(s) drawn, by me, sent to lab. Inserted saline lock: 20 gauge in left dh3 antecubital area, using aseptic technique. Blood collected. 13:44 XRAY Chest (1 view) Sent. hb 13:48 XRAY Chest (1 view) In Process Unspecified. EDMS 14:38 Chencho Delgado DO is Hospitalizing Provider. see 15:33 Cameron Barnes MD is Referral Physician. see 15:34 Aamir Schmitt MD is Referral Physician. see 18:20 No provider procedures requiring assistance completed. IV discontinued, intact, iw bleeding controlled, No redness/swelling at site. Pressure dressing applied. Administered Medications: 13:43 Drug: NS 0.9% 500 ml Route: IV; Rate: bolus; Site: left antecubital; hb 14:15 Follow up: Response: No adverse reaction; IV Status: Completed infusion; IV Intake: hb 500ml 14:33 Drug: NS 0.9% 1000 ml Route: IV; Rate: 125 ml/hr; Site: right antecubital; hb 14:38 Drug: Tylenol 650 mg Route: PO; hb 16:03 Drug: Decadron - Dexamethasone 10 mg Route: IVP; Site: left antecubital; hb 16:03 Drug: Rocephin 1 grams Route: IV; Rate: per protocol; Site: left antecubital; hb 16:03 Drug: Zithromax 500 mg Route: IVPB; Infused Over: 1 hrs; Site: left antecubital; hb 16:04 Drug: Albuterol HFA Inhaler 2 puffs Route: Inhalation; hb Intake: 14:15 IV: 500ml; Total: 500ml. hb Outcome: 14:39 Decision to Hospitalize by Provider. see 15:36 Discharge ordered by . see 18:19 Discharged to home ambulatory. iw 18:19 Condition: good 18:19 Discharge instructions given to patient, Instructed on discharge instructions, follow up and referral plans. medication usage, Demonstrated understanding of instructions, follow-up care, medications, Prescriptions given X 3. 18:20 Patient left the ED. iw Signatures: Dispatcher [employer] EDDuong Valle MD MD cha Rivera, Mary mr Sharri Gordon, RN CHERIE Katlyn Go RN RN Manuela Mendoza 3 Corrections: (The following items were deleted from the chart) 15:13 12:01 Acuity: UCHE 4 [facility]
[2020-03-15] MEDS ORDERED: dexAMETHasone 10 MG/ML VIAL ONE (15:28)
[2020-03-15] MEDS ORDERED: ALBUTEROL INHALER 60 PUFF/8 GM IH ONE (15:29)
[2020-03-15] MEDS ORDERED: CEFTRIAXONE/SWI 1gm 1 GM/10 ML SYR ONE (15:29)
[2020-03-15] MEDS ORDERED: ENOXAPARIN 40 MG/0.4 ML SQ ONE (15:29)
[2020-03-15] MEDS ORDERED: AZITHROMYCIN IV 500 MG in NA CHLORIDE 0.9% 250 ML IVPB ONE (16:00)
[2020-03-15] MEDS ORDERED: ONDANSETRON 4 MG/2 ML VIAL ONE (16:08)
[2020-03-15 17:14] LABS: Arterial Blood Carboxyhemoglob 1.3 % (0-1.5); Blood Gas Oxyhemoglobin 92.2 % (94-97); Blood O2 Saturation 94.3 % (92-98.5)
[2020-03-15 18:44] VITALS: TEMP 100.1
[2020-03-15 18:48] VITALS: BP 123/80; O2SAT 96
--- NOTE | 2020-03-16 06:40 | EKG ---
Test Date: 2020-03-15 Test Time: 13:47:29 Movers: KRUPA MEASUREMENT RESULTS: Intervals: Rate: 87 [place]: 146 QRSD: 82 QT: 368 QTc: 442 [place]: P: 11 [place]: 146 QRS: -5 T: 34 INTERPRETIVE STATEMENTS: Normal sinus rhythm Normal ECG Compared to ECG 12/06/2018 15:44:58 Sinus tachycardia no longer present Myocardial infarct finding no longer present Electronically Signed On 03-16-20 06:39:32 CDT by Matheus Gee
== END 2020-03-15 18:20 | disposition home or self-care (01) ==
LOC: ER 11:24
DX: J15.9 Unspecified bacterial pneumonia (principal); B97.21 SARS-associated coronavirus as the cause of diseases classified elsewhere; E11.9 Type 2 diabetes mellitus without complications; Z88.0 Allergy status to penicillin; Z88.5 Allergy status to narcotic agent
CPT/HCPCS: 96361; 93005; 87040 ×2; 85025; 80048; 36415; 83735; 80076; 83605; 84484; 84145; 83880; 87804 ×2; 71045; 82805; 96375; 96374; 99284; U0002; J0456; J1650; J1100; J0696; J7030 ×2; J2405

== ENCOUNTER 2021-10-13 14:07 | Emergency (ER) | payer BC, OTHER ==
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
[2021-10-13 15:51] VITALS: TEMP 97.8
[2021-10-13 15:52] VITALS: BP 126/84; O2SAT 100
== END 2021-10-13 15:46 | disposition home or self-care (01) ==
LOC: ER 14:07
DX: R07.89 Other chest pain (principal); V59.40XA Driver of pick-up truck or van injured in collision with unspecified motor vehicles in traffic accident, initial encounter; E11.9 Type 2 diabetes mellitus without complications; Z88.0 Allergy status to penicillin; Z88.8 Allergy status to other drugs, medicaments and biological substances
CPT/HCPCS: 70450; 71045; 72125; 99283